=== PATIENT | male | born 1955 ===

== ENCOUNTER → 2020-01-17 | Outpatient (CLI) | payer OTHER ==
--- NOTE | 2020-01-17 13:58 | MR ---
EXAMINATION TYPE: MR knee RT wo con DATE OF EXAM: 01/17/2020 COMPARISON: Plain film 12/28/2019 HISTORY: R knee pain TECHNIQUE: Multiplanar, multisequence imaging of the right knee is performed without IV contrast. FINDINGS: MEDIAL MENISCUS: Posterior horn of the medial meniscus shows abnormal increased signal extending to t he articular surface, the meniscus is attenuated posteriorly. Abnormal signal extends into the body t owards the anterior horn LATERAL MENISCUS: Anterior and posterior horns are intact without tear. CRUCIATE LIGAMENTS: The anterior and posterior cruciate ligaments are intact and unremarkable. COLLATERAL LIGAMENTS: The medial collateral ligament and lateral collateral ligament complex are inta ct and unremarkable. EXTENSOR MECHANISM: Visualized quadriceps and patellar tendons are intact. EFFUSION: Infrapatellar joint effusion is present. POPLITEAL CYST: Semimembranosus gastrocnemius cyst is present, there is some internal septations, fl uid extends along the fascial planes of the musculature within the leg and distal aspect of the right thigh. 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 Osteoarthritis. 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 Joint effusion.
== END | disposition home or self-care (01) ==
LOC: RADMRIMAIN 10:03
PROVIDERS: ATTEND Orthopaedic Surgery
DX: M17.11 Unilateral primary osteoarthritis, right knee (principal); S83.241A Other tear of medial meniscus, current injury, right knee, initial encounter